=== PATIENT | female | born 1985 | race American Indian/Alaskan Native ===

== ENCOUNTER 2017-06-02 14:46 | Inpatient (IN) | payer OTHER ==
[2017-06-02 15:44] LABS: Basophils % (Auto) 0.4 % (0.0-1.8); Eosinophils % (Auto) 2.4 % (0.0-4.3); Hematocrit 38.6 % (30.3-42.9); Mean Corpuscular HGB Conc 34 % (30-34); Mean Corpuscular Hemoglobin 30 pg (28-32); Mean Corpuscular Volume 90 fl (79-97); Platelet Count 137 K/mm3 (140-440); Red Blood Count 4.29 M/mm3 (3.65-5.03); White Blood Count 4.3 K/mm3 (4.5-11.0)
[2017-06-02 16:00] LABS: Anion Gap 19 mmol/L; BUN/Creatinine Ratio 15; Blood Urea Nitrogen 9 mg/dL (7-17); Calcium 9.5 mg/dL (8.4-10.2); Carbon Dioxide 25 mmol/L (22-30); Chloride 102.9 mmol/L (98-107); Glucose 107 mg/dL (65-100); Potassium 4.5 mmol/L (3.6-5.0); Sodium 142 mmol/L (137-145)
[2017-06-02] MEDS ORDERED: MORPHINE IV ONE (22:15)
[2017-06-02] MEDS ORDERED: ZOFRAN IV ONE (22:15)
[2017-06-02] MEDS ORDERED: NITRO-BID 2% TP ONE (22:15)
[2017-06-02] MEDS ORDERED: ASPIRIN PO ONE (22:15)
--- NOTE | 2017-06-02 22:20 | Emergency Department Report ---
HPI - General Chief Complaint: Arrhythmia/Palpitations Time Seen by Provider: 06/02/17 21:58 - HPI HPI: Room 4 The patient is a 32-year-old female presenting with a chief complaint of palpitations and chest discomfort. The patient states that she awakened this morning at 02:00, so her heart was beating forcefully. Patient states she felt dizzy and had discomfort in her chest as well as her back. Patient admits to diaphoresis width of discomfort. Patient denies shortness of breath or nausea/ vomiting currently but admits she had an episode of nausea 5 days ago. Patient describes pain in her back is sharp in nature. The patient states she's never had a stress test or cardiac catheterization Location: Chest, back Duration: Constant since 02:00 Quality: Sharp Severity: Moderate Modifying factors: [see above] Context: [see above] Mode of transportation: [not driving] ED Past Medical Hx - Past Medical History Previous Medical History?: No - Surgical History Past Surgical History?: Yes Additional Surgical History: Ectopic - Family History Family history: no significant - Social History Smoking Status: Never Smoker Substance Use Type: None (denies illicit drug use), Alcohol (occasional) ED Review of Systems ROS: Stated complaint: CHEST PAIN Other details as noted in HPI Constitutional: diaphoresis Respiratory: denies: shortness of breath Cardiovascular: palpitations Gastrointestinal: nausea. denies: vomiting Musculoskeletal: back pain Physical Exam - Physical Exam Vital Signs: Vital Signs 06/02/17 06/02/17 14:55 19:51 Temperature 98.4 F 98.6 F Pulse Rate 92 H 100 H Respiratory 16 18 Rate Blood Pressure 139/84 118/70 O2 Sat by Pulse 99 100 Oximetry Physical Exam: GENERAL: The patient is well-developed well-nourished female lying on stretcher not appearing to be in acute distress. [] HEENT: Normocephalic. Atraumatic. Extraocular motions are intact. Patient has moist mucous membranes. NECK: Supple. Trachea midline CHEST/LUNGS: Clear to auscultation. There is no respiratory distress noted. HEART/CARDIOVASCULAR: Regular. There is no tachycardia. There is no gallop rub or murmur. Frequent PACs on the monitor ABDOMEN: Abdomen is soft, nontender. Patient has normal bowel sounds. There is no abdominal distention. SKIN: There is no rash. There is no edema. There is no diaphoresis. NEURO: The patient is awake, alert, and oriented. The patient is cooperative. The patient has normal speech MUSCULOSKELETAL: There is no evidence of acute injury. ED Course Vital Signs 06/02/17 06/02/17 14:55 19:51 Temperature 98.4 F 98.6 F Pulse Rate 92 H 100 H Respiratory 16 18 Rate Blood Pressure 139/84 118/70 O2 Sat by Pulse 99 100 Oximetry ED Medical Decision Making - Lab Data Result diagrams: 06/02/17 15:08 06/02/17 15:08 Laboratory Tests 06/02/17 06/02/17 06/02/17 15:08 15:08 17:25 WBC 4.3 L RBC 4.29 Hgb 13.0 Hct 38.6 MCV 90 MCH 30 MCHC 34 RDW 13.0 L Plt Count 137 L Lymph % (Auto) 33.6 [place] % (Auto) 10.1 H Eos % (Auto) 2.4 Baso % (Auto) 0.4 Lymph # 1.5 [place] # 0.4 Eos # 0.1 Baso # 0.0 Seg Neutrophils % 53.5 Seg Neutrophils # 2.3 Sodium 142 Potassium 4.5 Chloride 102.9 Carbon Dioxide 25 Anion Gap 19 BUN 9 Creatinine 0.6 L Estimated GFR > 60 BUN/Creatinine Ratio 15 Glucose 107 H Calcium 9.5 Troponin T < 0.010 < 0.010 - EKG Data -: EKG Interpreted by Me EKG shows normal: sinus rhythm Rate: normal - EKG Data When compared to previous EKG there are: previous EKG unavailable Interpretation: other (no ischemic changes seen) - Radiology Data Radiology results: image reviewed (chest x-ray) interpreted by me: Chest x-ray-no focal infiltrate, no pneumothorax - Differential Diagnosis ACS, pericarditis, GERD, dysrhythmia Critical care attestation.: If time is entered above; I have spent that time in minutes in the direct care of this critically ill patient, excluding procedure time. ED Disposition Clinical Impression: Chest discomfort, PAC (premature atrial contraction) Disposition: OP ADMIT IP TO THIS HOSP Is pt being admited?: Yes Does the pt Need Aspirin: Yes Condition: Fair Referrals: PRIMARY CARE, [Primary Care Provider] - 3-5 Days Time of Disposition: 22:32 (hospitalist notified)
--- NOTE | 2017-06-02 23:13 | History and Physical Report ---
History of Present Illness Date of examination: 06/02/17 History of present illness: 32-year-old woman with no medical history complaining of chest pain in the left substernal area that started this morning, feels like a forceful pain , constant , intensity 5/10, no radiation, cannot identify exacerbating or relieving factors. Admits to shortness of breath, palpitation. Denies nausea vomiting, diaphoresis Review Of Systems: Constitutional: no weight loss Ears, eyes, nose, mouth and throat: no nasal congestion, no nasal discharge, no sinus pressure, blurry vision, diplopia Neck: No neck pain or rigidity. Cardiovascular: no orthopnea, palpitations Respiratory: No cough Gastrointestinal: no hematochezia Genitourinary : no dysuria, frequency , hematuria Musculoskeletal: no muscle ache Integumentary: no rash, no pruritis Neurological: no parathesias, focal weakness Endocrine: no cold or heat intolerance, no polyuria or polydipsia Hematologic/Lymphatic: no easy bruising, no easy bleeding, no gland swelling Allergic/Immunologic: no urticaria, no angioedema. PAST MEDICAL HISTORY: none PAST SURGICAL HISTORY: bowel surgery FAMILY HISTORY:hypertension SOCIAL HISTORY: Denies alcohol, tobacco, drugs Medications and Allergies Allergies Allergy/AdvReac Type Severity Reaction Status Date / Time No Known Allergies Allergy Verified 06/02/17 23:23 Exam - Physical Exam Narrative exam: Gen. appearance: Patient lying in bed in no acute distress HEENT: Normocephalic/atraumatic, pupils equal round reactive to light, extra alkaline movement intact, no scleral icterus, no JVD or thyromegaly or nodule, neck is supple, mucous membrane moist, no erythema or exudate Heart: S1-S2, regular rate and rhythm Lungs: Clear to auscultation bilateral breathing comfortable Abdomen: Positive bowel sounds, nontender, nondistended, no organomegaly Extremities: No edema, cyanosis, clubbing Neuro:: Oriented 3 , cranial nerves II-12 intact, speech, motor intact Skin: No rash, nodules, warm dry - Constitutional Vitals: Temp Pulse Resp BP Pulse Ox 98.6 F 100 H 18 118/70 100 06/02/17 19:51 06/02/17 19:51 06/02/17 19:51 06/02/17 19:51 06/02/17 19:51 Results - Labs CBC & Chem 7: 06/02/17 15:08 06/02/17 15:08 Labs: Abnormal lab results 06/02/17 06/02/17 Range/Units 15:08 15:08 WBC 4.3 L (4.5-11.0) K/mm3 RDW 13.0 L (13.2-15.2) % Plt Count 137 L (140-440) K/mm3 [place] % (Auto) 10.1 H (0.0-7.3) % Creatinine 0.6 L (0.7-1.2) mg/dL Glucose 107 H (65-100) mg/dL - Imaging and Cardiology EKG: image reviewed Chest x-ray: image reviewed Assessment and Plan Assessment Chest pain Thrombocytopenia Plan Admit to medicine Check cardiac enzymes, d-dimer, stress test
[2017-06-02] MEDS ORDERED: ZOFRAN IV PRN (23:14)
[2017-06-02] MEDS ORDERED: DULCOLAX PR PRN (23:14)
[2017-06-02] MEDS ORDERED: MILK OF MAGNESIA PO PRN (23:14)
[2017-06-02] MEDS ORDERED: TYLENOL PO PRN (23:14)
[2017-06-02] MEDS ORDERED: PERCOCET 5/325 PO PRN (23:14)
[2017-06-03 00:50] LABS: Creatine Kinase 69 units/L (30-135)
[2017-06-03 00:52] LABS: Creatine Kinase MB < 1.0 ng/mL (0.0-4.0)
--- NOTE | 2017-06-03 03:09 | XRay Report ---
FINAL REPORT EXAM: XR CHEST 1V AP HISTORY: chest pain TECHNIQUE: An AP upright view of the chest was submitted. FINDINGS: Heart size mediastinum appear normal. The lungs are clear. Pleural fluid is not seen. There are EKG leads overlying the chest wall. The bones and soft tissues appear well maintained. IMPRESSION: No acute process in the chest.
[2017-06-03 06:05] LABS: Basophils % (Auto) 1.1 % (0.0-1.8); Eosinophils % (Auto) 2.9 % (0.0-4.3); Hematocrit 37.6 % (30.3-42.9); Hemoglobin 12.8 gm/dl (10.1-14.3); Mean Corpuscular HGB Conc 34 % (30-34); Mean Corpuscular Hemoglobin 31 pg (28-32); Mean Corpuscular Volume 90 fl (79-97); Red Blood Count 4.18 M/mm3 (3.65-5.03); Red Cell Distribution Width 13.1 % (13.2-15.2); White Blood Count 5.6 K/mm3 (4.5-11.0)
[2017-06-03 06:08] LABS: Platelet Count 138 K/mm3 (140-440)
[2017-06-03 06:27] LABS: Creatine Kinase MB < 1.0 ng/mL (0.0-4.0)
[2017-06-03 06:29] LABS: Creatine Kinase 52 units/L (30-135)
[2017-06-03 06:31] LABS: Anion Gap 17 mmol/L; BUN/Creatinine Ratio 14; Blood Urea Nitrogen 10 mg/dL (7-17); Calcium 9.1 mg/dL (8.4-10.2); Carbon Dioxide 23 mmol/L (22-30); Chloride 105.5 mmol/L (98-107); Glucose 102 mg/dL (65-100); Potassium 4.2 mmol/L (3.6-5.0); Sodium 141 mmol/L (137-145)
[2017-06-03] MEDS ORDERED: LEXISCAN IV ONE (08:08)
[2017-06-03] MEDS ORDERED: LOVENOX SUB-Q SCH ×2 (10:00)
--- NOTE | 2017-06-03 10:09 | Discharge Summary ---
Providers - Providers Date of Admission: 06/02/17 23:14 Date of discharge: 06/03/17 Attending physician: FRANCISCA FELDMAN Primary care physician: SHANELLE URENA MD Hospitalization Condition: Fair Disposition: DC-01 TO HOME OR SELFCARE Exam - Constitutional Vitals: Temp Pulse Resp BP Pulse Ox 98.6 F 76 18 94/42 99 06/03/17 04:39 06/03/17 07:48 06/03/17 04:39 06/03/17 04:39 06/03/17 04:39 Plan Activity: no restrictions Diet: regular Additional Instructions: 1.Follow up with PCP or [facility] in 1 week. Follow up with: PRIMARY CARE, [Primary Care Provider] - 3-5 Days
--- NOTE | 2017-06-03 10:45 | Event Note ---
Date: 06/03/17 Nonischemic exercise stress test. No chest pain. Patient exercised for 10 minutes 17 seconds according to the Hank protocol. Achieved a workload of 11 mets and attained 96% of the age-predicted maximum heart rate response. There was no significant ectopy. There were no significant ischemic repolarization abnormalities.
--- NOTE | 2017-06-03 11:10 | Treadmill Report ---
TREADMILL STRESS TEST INDICATION FOR PROCEDURE: Chest pain. ELECTROCARDIOGRAM: The baseline electrocardiogram demonstrates normal sinus rhythm and is within normal limits. PROCEDURE: The patient exercised according to the Hank protocol for a total of 8 minutes 11 seconds. The resting heart rate was 90 beats per minute. The resting blood pressure was 110/60. The peak heart rate was 182 beats per minute representing 96% of the age predicted maximum heart rate response. The peak blood pressure was 158/68. The patient achieved a workload of 11.0 mets. Exercise was limited by fatigue. There was no chest pain. The electrocardiographic response demonstrates no significant ischemic repolarization changes either during exercise or in the recovery phase. The exercise test is clinically and electrocardiographically nonischemic. The patient demonstrated an excellent level of cardiac work. JOB# [id number] ETIENNE/RAYRAY
[2017-06-03] MEDS ORDERED: Fluarix Quad 2017-2018(36 MOS+ IM ONE (12:00)
[2017-06-03 12:49] VITALS: BP 111/65
== END 2017-06-03 16:23 | disposition home or self-care (01) | DRG 313 ==
LOC: ED 14:46 → 4A 23:14
PROVIDERS: ADMIT Internal Medicine; ATTEND Internal Medicine
DX: R07.89 Other chest pain (principal); Z82.49 Family history of ischemic heart disease and other diseases of the circulatory system; D69.6 Thrombocytopenia, unspecified
CPT/HCPCS: 36415; 71010; 80048; 82550; 82553; 84439; 84443; 84484; 85025; 85379; 90686; 93005; 93010; 93017; 96374; 96375; J1650; J2270; J2405; J2785